=== PATIENT | female | born 1985 | race Caucasian/White ===

== ENCOUNTER → 2017-08-09 | Outpatient (CLI) | payer BC ==
[~2017-08-09] MED LIST: IUD
--- NOTE | 2017-08-09 11:22 | DIAGNOSTIC IMAGING REPORT ---
HYSTEROSALPINGOGRAM HISTORY: Infertility. FLUOROSCOPY TIME: 0.5 minutes. 2 fluoroscopic spot images. TECHNIQUE: The cervix was cannulated by the electrical linesworker-research and evaluation analyst and water soluble contrast was instilled into the uterus under fluoroscopic guidance. Multiple spot images were obtained. FINDINGS: The uterine cavity is slightly smaller than expected and irregular possibly due to scarring. No filling defects identified within the uterine cavity.. The fallopian tubes are patent and there is free peritoneal spill bilaterally. IMPRESSION: 1. The uterine cavity is slightly smaller than expected and irregular possibly due to scarring. 2. The fallopian tubes are patent and there is free peritoneal spill bilaterally. Electronically signed by: Kirk Cox M.D. 08/09/2017 11:21 AM Dictated Date/Time: 08/09/2017 11:20 AM
== END | disposition home or self-care (01) ==
LOC: C.RAD 10:04
PROVIDERS: ATTEND Obstetrics & Gynecology
DX: N97.9 Female infertility, unspecified (principal)

== ENCOUNTER 2017-12-03 05:11 | Day surgery (SDC) | payer BC ==
[2017-11-18 13:22] VITALS: BMI 45.0
--- NOTE | 2017-11-18 14:15 | PAT Medication Instructions ---
Service Date November 18, 2017. Current Home Medication List Loratadine (Claritin), 10 MG PO UD PRN for PRN Lorazepam (Ativan), 0.5 MG PO UD PRN for ANXIETY Medication Instructions For Your Scheduled Surgery - Take the following medications the morning of surgery with a sip of water: Lorazepam (Ativan), 0.5 MG PO UD PRN for ANXIETY (if needed) - Take the following medications as scheduled the night before surgery: Lorazepam (Ativan), 0.5 MG PO UD PRN for ANXIETY (if needed) Loratadine (Claritin), 10 MG PO UD PRN for PRN (if needed) If you have any questions please call us at [phone] or [phone] or [phone]
[2017-11-18 14:26] LABS: BASO % 0.3 %; BASO ABS # 0.03 K/uL (0-0.2); EOS % 1.1 %; EOS ABS # 0.12 K/uL (0-0.5); HEMATOCRIT 41.7 % (37-47); HEMOGLOBIN 14.5 g/dL (12.0-16.0); IG# 0.03 K/uL (0.00-0.02); LYMPH % 27.3 %; LYMPH ABS # 3.09 K/uL (1.2-3.4); MEAN CELL VOLUME 85.5 fL (80-100); MEAN CORPUSCULAR HEMOGLOBIN 29.7 pg (25-34); MEAN CORPUSCULAR HGB CONC 34.8 g/dl (32-36); MEAN PLATELET VOLUME 11.3 fL (7.4-10.4); MONO % 5.9 %; MONO ABS # 0.67 K/uL (0.11-0.59); NEUT % 65.1 %; NEUT ABS # 7.37 K/uL (1.4-6.5); PLATELET COUNT 265 K/uL (130-400); RED CELL DISTRIBUTION WIDTH CV 12.3 % (11.5-14.5); RED CELL DISTRIBUTION WIDTH SD 37.8 fL (36.4-46.3); WHITE BLOOD COUNT 11.31 K/uL (4.8-10.8)
[2017-11-18 14:35] LABS: PTT PATIENT 26.6 SECONDS (21.0-31.0)
[~2017-12-03] VITALS: Ht 165.1 cm; Wt 124.5 kg
[~2017-12-03 05:11] MED LIST changes: +CLR10 PO; -IUD; +LORA-741 PO
[2017-12-03] MEDS ORDERED: [UNRECOGNIZED DRUG - CODE] PO (05:34)
[2017-12-03] MEDS ORDERED: NORE5TAB5 PO (05:34)
[2017-12-03 05:35] VITALS: BP 151/99; PULSE 76; TEMP 36.6; O2SAT 96; Ht 165.1 cm; Wt 124.5 kg
[2017-12-03] MEDS ORDERED: LACTATED RINGER'S 1000ML 1,000 ML IV SCH ×2 (06:00)
[2017-12-03] MEDS ORDERED: LACTATED RINGER'S 1000ML 500 ML IV SCH (06:00)
[2017-12-03] MEDS ORDERED: FERRIC SUBSULFATE 8 GM VIAL ONE (06:40)
[2017-12-03] MEDS ORDERED: SILVER NITR/POTASSIUM NITRATE APPLICATOR ONE (06:41)
[2017-12-03] MEDS ORDERED: LIDOCAINE HCL 2% 2 ML VIAL (20MG/ML) ONE (06:43)
[2017-12-03] MEDS ORDERED: SUCCINYLCHOLINE CHLORIDE 20 MG/ML 10 ML VIAL IV ONE (06:43)
[2017-12-03] MEDS ORDERED: GLYCOPYRROLATE INJ 0.2 MG/ML VIAL ONE (06:43)
[2017-12-03] MEDS ORDERED: ONDANSETRON INJ 2 MG/ML 2 ML VIAL ONE (06:43)
[2017-12-03] MEDS ORDERED: NEOSTIGMINE METHYLSULFATE 5 MG/5 ML SYR ONE (06:43)
[2017-12-03] MEDS ORDERED: PHENYLEPHRINE HCL INJ 10 MG/ML VIAL ONE (06:43)
[2017-12-03] MEDS ORDERED: EpHEDrine SULFATE INJ 50 MG/ML AMP ONE (06:43)
[2017-12-03] MEDS ORDERED: PROPOFOL IV EMULSION 10 MG/ML 20 ML VIAL ONE ×2 (06:43→07:26)
[2017-12-03] MEDS ORDERED: FENTANYL CITRATE INJ 50 MCG/1 ML 2 ML VIAL ONE (06:43)
[2017-12-03] MEDS ORDERED: MIDAZOLAM HCL 1 MG/ML 2ML VIAL ONE (06:43)
[2017-12-03] MEDS ORDERED: DEXAMETHASONE SOD INJ 4 MG/ML VIAL ONE ×2 (06:43→07:26)
--- NOTE | 2017-12-03 06:43 | History & Physical Bridge Note ---
H&P Re-Evaluation Bridge Note: I have examined the patient, reviewed the History & Physical and in the interval since the performance of the History & Physical I have noted the following changes of clinical significance: No changes noted
[2017-12-03] MEDS ORDERED: METOCLOPRAMIDE HCL INJ 5 MG/ML 2 ML VIAL ONE (07:26)
[2017-12-03] MEDS ORDERED: RANITIDINE HCL 25 MG/ML INJ ONE (07:26)
[2017-12-03] MEDS ORDERED: SODIUM CHLORIDE 0.9% 1000ML 1,000 ML IV SCH (07:42)
[2017-12-03] MEDS ORDERED: PROMETHAZINE HCL INJ 25 MG in SODIUM CHLORIDE 0.9% 50ML 50 ML IV PRN (07:45)
[2017-12-03] MEDS ORDERED: MoRPHine SULFATE 4 MG/ML 1 ML CARP\\VIAL IV PRN ×2 (07:45)
[2017-12-03] MEDS ORDERED: OXYCODONE/ACETAMINOPHEN 5-325 TAB PO PRN ×2 (07:45)
[2017-12-03] MEDS ORDERED: ONDANSETRON INJ 2 MG/ML 2 ML VIAL IV PRN ×2 (07:45→08:00)
[2017-12-03] MEDS ORDERED: IBUPROFEN 600 MG TAB PO PRN (07:45)
--- NOTE | 2017-12-03 07:46 | [facility] Post Operative Brief Note ---
Immediate Operative Summary Operative Date December 03, 2017. Pre-Operative Diagnosis Infertility, Hypomenorrhea, Intrauterine Adhesions per [facility] Post-Operative Diagnosis Infertility, Hypomenorrhea, Arcuate Uterus Procedure(s) Performed Evaluation Under Anesthesia, Hysteroscopy, Endometrial Sampling with Myosure Surgeon Dr. Farnsworth Nutrition Teacher Surgeon(s) None Estimated Blood Loss 5ml Findings Consistent with Post-Op Diagnosis Fluids (cc crystalloids) 700 ml LR Specimens A. Endometrial tissue Drains None Anesthesia Type General Disposition Disposition: Recovery Room / PACU Overlapping Procedure I was present for: during the entire case
[2017-12-03] MEDS ORDERED: KETOROLAC TROMETHAMINE 30 MG/ML VIAL ONE (07:47)
--- NOTE | 2017-12-03 07:54 | Discharge Instructions-SurgCtr ---
Discharge Instructions Date of Service December 03, 2017. Visit Reason for Visit: Infertility, Hypomenorrhea, Intrauterine Adhesions Discharge Discharge Diagnosis / Problem: Hysteroscopy, endometrial samplinmg with Myosure Discharge Goals Goal(s): Decrease discomfort Activity Recommendations Activity Limitations: as noted below ACTIVITY RECOMMENDATIONS: * Avoid tampons, douching, hot tubs, pools, and intercourse until bleeding has stopped. * May shower as usual. * No strenuous activity for 24-48 hours. After 24-48 hours, you can do anything you feel like doing (driving and sports are okay). RETURN TO SCHOOL/WORK: * You may return to school or work on 12/06/2017 unless specified by your physician. DIET: * Resume previous diet. MEDICATIONS: Resume previous medications unless instructed otherwise by your surgeon. Ibuprofen 200mg 2-3 tablets every 4-6 hours as needed --OR-- Aleve 2 tablets every 8-12 hours as needed for post-operative discomfort Medications are over the counter. Tylenol may be used if above medications are contraindicated or not preferred. Medication should be taken with food or milk. do not take on an empty stomach. SPECIAL CARE INSTRUCTIONS: * Check temperature twice daily for one week. Report any elevation over 101 degrees. * Call office if you experience increased pelvic pain or discomfort not relieved by pain medicine, if you have foul smelling vaginal discharge, if you have bleeding that is heavier than a normal menstrual flow. If you are changing a maxi pad every 1- 2 hours, this is too heavy. vaginal spotting is normal for 1-2 weeks. FOLLOW UP VISIT: Call your doctor's office for a post-operative visit. Anesthesia . Post Anesthesia Instructions: If you have had General Anesthesia or IV Sedation: * Do not drive today. * Resume driving when surgeon permits. * Do not make important decisions or sign legal documents today. * Call surgeon for: 1. Temperature elevations greater than 101 degrees F. 2. Uncontrollable pain. 3. Excessive bleeding. 4. Persistent nausea and vomiting. 5. Medication intolerance (nausea, vomiting or rash). * For nausea and vomiting use only clear liquids such as: tea, soda, bouillon until nausea subsides, then gradually increase diet as tolerated. * If you have any concerns or questions, call your surgeon's office. If physician is unavailable and it is an emergency, call 911 or go to the nearest emergency room. . Diet Recommendations Home Diet: resume previous diet Procedures Procedures Performed: Evaluation Under Anesthesia, Hysteroscopy, Endometrial Sampling with Myosure Pending Studies Studies pending at discharge: yes List of pending studies: pathology Work Instructions Return To Work: 3 days (12/06/2017) Medical Emergencies . Who to Call and When: Medical Emergencies: If at any time you feel your situation is an emergency, please call 911 immediately. . Non-Emergent Contact Non-Emergency issues call your: Specialist Call Non-Emergent contact if: temperature is above 100.5, your pain is not controlled, your pain is worsening . . "Provider Documentation" section prepared by Jah Rueda. .
[2017-12-03] MEDS ORDERED: FENTANYL CITRATE INJ 50 MCG/1 ML 2 ML VIAL IV PRN (08:00)
[2017-12-03] MEDS ORDERED: ATROPINE SULFATE 0.1 MG/ML 5ML SYR IV PRN (08:00)
[2017-12-03] MEDS ORDERED: LABETALOL HCL IV 5 MG/ML 20ML IV PRN (08:00)
[2017-12-03] MEDS ORDERED: ROCURONIUM BROMIDE 10 MG/ML 5 ML VIAL ONE (08:07)
[2017-12-03 08:45] VITALS: BP 147/82; PULSE 65; TEMP 37.1; O2SAT 95
--- NOTE | 2017-12-03 08:53 | Anesthesiology Progress Note ---
Anesthesia Post Op Note Date & Time December 03, 2017 at 08:53 Vital Signs Pain Intensity: 2 Vital Signs Past 12 Hours Date Time Temp Pulse Resp B/P (MAP) Pulse Ox O2 Delivery O2 Flow Rate FiO2 12/03/17 08:40 36.7 69 17 134/93 98 Room Air 12/03/17 08:30 62 16 144/87 97 Room Air 12/03/17 08:20 68 17 131/87 99 Oxymask 4 12/03/17 08:10 69 18 132/90 96 Oxymask 10 12/03/17 08:01 36.1 83 20 146/95 96 Oxymask 10 12/03/17 05:35 36.6 76 18 151/99 (116) 96 Room Air Notes Mental Status: alert / awake / arousable, participated in evaluation Pt Amnestic to Procedure: Yes Nausea / Vomiting: adequately controlled Pain: adequately controlled Airway Patency, RR, SpO2: stable & adequate BP & HR: stable & adequate Hydration State: stable & adequate Anesthetic Complications: no major complications apparent
[2017-12-03 09:14] VITALS: BP 125/87; PULSE 65; O2SAT 97
--- NOTE | 2017-12-03 11:34 | OPERATIVE REPORT ---
DATE OF OPERATION: 12/03/2017 PREOPERATIVE DIAGNOSES: The patient is a 32-year-old G2, P2-0-0-2 with secondary infertility, hypomenorrhea, intrauterine adhesion versus scarring per [facility]. POSTOPERATIVE DIAGNOSIS: The patient is a 32-year-old G2, P2-0-0-2 with secondary infertility, hypomenorrhea, and arcuate uterus. PROCEDURE: Exam under anesthesia, hysteroscopy, endometrial sampling with MyoSure. SURGEON: Jah Rueda MD ARTILLERY SPECIALIST: OR nurses. ESTIMATED BLOOD LOSS: 5. FLUIDS: 700 mL of lactated Ringer's. SPECIMENS: Endometrial tissue. ANESTHESIA: General endotracheal. DRAINS: Straight cath drained 350 mL of clear urine. FINDINGS: Exam under anesthesia revealed mild cystocele, rectocele, and uterine prolapse and anteverted normal size uterus, nonpalpable adnexa. Hysteroscopic findings normal endocervical canal. Endometrial cavity was irregularly thickened, normal for late luteal phase of the cycle. No adhesions or scarring seen through hysteroscope. Normal tubal ostia. There was a mild configuration of arcuate uterus, otherwise normal endometrium. DESCRIPTION OF PROCEDURE: The patient was taken to the operating room where anesthesia was given without difficulty. She was placed in dorsal lithotomy position, prepared and draped in usual sterile fashion. Urinary bladder was drained with a straight catheter, 350 mL of clear urine was obtained and exam under anesthesia was done with the above findings. Gloves were changed and a weighted speculum was placed in the patient's vagina and the bladder was retracted with the Richard retractor and the cervix was visualized, grasped with single tooth tenaculum. Cervical os was dilated with Hegar dilators until #7 and then hysteroscope was introduced from the cervix. Fluid/ normal saline was started and intrauterine cavity was visualized as above findings. Endometrial tissue was fluffy / thickened due to being late luteal phase. Pictures were taken and MyoSure was introduced from the hysteroscope. These fluffy portions of endometrium were biopsied with the tip of MyoSure under direct visualization. No adhesion nor synechia noted. There noted to be a mild arcuate shape of the uterus. There was an indentation in the middle and both tubal ostia were on the corners about 1 cm deep from the fundus and otherwise there were no adhesions or scarring in the uterine cavity. There seemed to be a normal size uterine cavity and normal morphology other than mild arcuate. The endometrium was sampled with the tip of MyoSure while twisting it around in a clockwise direction and coming out with its tip. The hysteroscopy was repeated again, endometrium looked clean and normal and pictures were taken again. The luid was stopped and the hysteroscope was removed. Single tenaculum was removed from the patient's cervix and it was hemostatic. Procedure was ended. The patient tolerated the procedure well. Sponge, lap, and instrument count was correct x3. No complications happened and I was present during whole procedure. The patient was cleaned and taken out from lithotomy position, brought to recovery room in stable condition. I attest to the content of the Intraoperative Record and any orders documented therein. Any exceptions are noted below. EPIFANIO
== END 2017-12-03 09:50 | disposition home or self-care (01) ==
LOC: C.ACU 05:11
PROVIDERS: ATTEND Obstetrics & Gynecology
DX: N97.8 Female infertility of other origin (principal); N85.6 Intrauterine synechiae; N91.5 Oligomenorrhea, unspecified; Z87.891 Personal history of nicotine dependence; Z82.49 Family history of ischemic heart disease and other diseases of the circulatory system